=== PATIENT | male | born 1990 | race Caucasian/White ===

== ENCOUNTER 2016-12-30 21:47 | Emergency (ER) | payer BC ==
[2016-12-30 21:52] VITALS: TEMP 97.9
[2016-12-30] MEDS ORDERED: CEPHALEXIN 500 MG CAP PO ONE (22:13)
--- NOTE | 2016-12-30 22:18 | EDPHY ---
H & P Time Seen by Provider: 12/30/16 22:00 HPI/ROS: CHIEF COMPLAINT: Possible infection right knee HISTORY OF PRESENT ILLNESS: 26-year-old immunocompetent male with up-to-date tetanus states that 8 days ago he was rock climbing, fell and impacted his left medial knee sustaining a laceration. Not seek medical attention at that time, has been cleaning the area placing butterfly bandages over the area but has noticed over the past 2-3 days progressive erythema and warmth. No lymphangitic streaking. No fever or chills. He is able to bear weight. Full range of motion. PHYSICAL EXAM (Prior to examination, patient consented to physical exam, hands were washed and my usual and customary physical exam procedures followed) 1) GENERAL: Well-developed, well-nourished, alert and oriented. Appears to be in no acute distress. 2) HEAD: Normocephalic 3) HEENT: sclera anicteric 4) LUNGS: Breathing comfortably. 5) SKIN: erythematous discoloration to the right medial knee 6) MUSCULOSKELETAL: right knee: Medial aspect there is a granulating 2 cm laceration with halo erythema extending proximally 3 cm. Otherwise no lymphangitic streaking. Full flexion extension. No pain with axial loading of the joint. No effusion. Soft compartments Smoking Status: Never smoked Constitutional: Initial Vital Signs Temperature (C) 36.6 C 12/30/16 21:48 Heart Rate 80 12/30/16 21:48 Respiratory Rate 14 12/30/16 21:48 Blood Pressure 122/65 H 12/30/16 21:48 O2 Sat (%) 100 12/30/16 21:48 O2 Delivery Mode Room Air Allergies/Adverse Reactions: prednisone Allergy (Verified 08/16/15 18:50) Home Medications: Medication Instructions Recorded Adderall 10 mg Tablet 12/30/16 Cephalexin [Keflex] 500 mg PO TID 10 Days cap 12/30/16 MDM/Departure - MDM Imaging Results: Imaging Impressions Knee X-Ray 12/30/16 22:08 Impression: Negative for osseous abnormality. Soft tissue tissue swelling is noted as detailed above. Images reviewed myself Medications Given: Discontinued Medications Cephalexin HCl (Keflex) 500 mg PO EDNOW ONE PRN Reason: Protocol Stop: 12/30/16 22:14 Last Admin: 12/30/16 22:18 Dose: 500 mg ED Course/Re-evaluation: I reviewed the patient his x-ray showing no radiopaque foreign body, no fracture. Doubt septic arthritis. Doubt traumatic arthrotomy. He does have evidence of infection to his wound. No history of MRSA. Plan will be monotherapy with Keflex, elevation, follow up in 2 days with PCP or return to the ER in 2 days for recheck. Definitely if he develops lymphangitic streaking is to return to the ER sooner.Care of patient under supervision of secondary supervising physician Dr Buckner . - Depart Disposition: Home, Routine, Self-Care Clinical Impression: Infected wound right knee Condition: Good Instructions: Cephalexin (By mouth), Wound Infection (ED) Additional Instructions: Return to the ER if you develop redness, swelling, discharge, warmth to the wound, red streaks going up your leg, or any other symptoms that concern you. Prescriptions: Cephalexin [Keflex] 500 mg PO TID 10 Days cap Referrals: Ze Ivy MD [Medical Doctor] - 1-2 days without fail (Dr. Ivy is an orthopedic doctor)
[2016-12-30] MEDS ORDERED: CEPHALEXIN 500MG PREPACK#4 BTL TAKEHOME ONE (23:12)
[2016-12-30 23:20] VITALS: BP 95/73; PULSE 73; RESP 20; O2SAT 93
== END 2016-12-30 23:20 | disposition home or self-care (01) ==
DX: L08.9 Local infection of the skin and subcutaneous tissue, unspecified (principal)